=== PATIENT | male | born 1985 | race Caucasian/White ===

== ENCOUNTER 2022-01-22 15:09 | Emergency (ER) | payer OTHER, SELFPAY ==
[2022-01-22 15:20] VITALS: BP 165/100; PULSE 88; RESP 18; TEMP 36.9; O2SAT 99
--- NOTE | 2022-01-22 16:09 | ED.WOUNDLAC ---
HPI - Wound/Laceration <VALERIY Calhoun - Last Filed: 01/22/22 17:07> General Chief Complaint: Wound/Laceration Stated Complaint: Sliced Lt Pinky Finger Time Seen by Provider: 01/22/22 16:07 Source: patient Mode of arrival: Ambulatory History of Present Illness HPI narrative: This is 36-year-old male who was working over at the local grocery store who presents to the emergency department with a left 5th digit laceration. He states he was slicing meat when he sliced the distal end of his 5th digit and it started bleeding. He states he was not able to get the bleeding to stop. Presents to the emergency department for evaluation of his laceration. He states that he is up-to-date on his tetanus, denies any significant pain. 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 He states that he is concerned about read contaminating this with wound by going back to work. Patient tetanus UTD: Yes Related Data Home Medications Medication Instructions Recorded Confirmed dextroamphetamine-amphetamine 20 20 mg PO DAILY 01/17/20 01/17/20 mg tablet (Adderall) Previous Rx's Medication Instructions Recorded mupirocin 2 % topical ointment 1 applic TOP BID #30 gram 01/17/20 Allergies Allergy/AdvReac Type Severity Reaction Status Date / Time No Known Drug Allergies Allergy Verified 01/17/20 11:48 Review of Systems <VALERIY Calhoun - Last Filed: 01/22/22 17:07> Review of Systems Narrative: General: denies fever, chills, malaise, sweats, fatigue Head/Neck: denies headache, neck pain, dizziness Eyes: denies visual changes, eye pain Cardio: denies chest pain, palpitations, edema Respiratory: denies dyspnea, cough MSK: denies joint pain, muscle weakness Skin: denies rash, itching, states laceration to the distal tip of his left 5th digit Neuro: denies numbness, tingling Patient History <VALERIY Calhoun - Last Filed: 01/22/22 17:07> Social History Smoking Status: Current every day smoker Smoking Status: Current every day smoker Exam <VALERIY Calhoun - Last Filed: 01/22/22 17:07> Narrative Exam Narrative: Independently reviewed vitals signs and nursing notes. General: cooperative, comfortable, in no acute distress, well developed and well groomed Head: atraumatic, symmetrical facial expressions Neck: supple, atraumatic, without lymphadenopathy. Eyes: pupils equal round and reactive, EOMI, conjunctiva normal Nose: nares patent, no rhinorrhea Mouth/Throat: uvula midline, moist mucus membranes Cardiovascular: regular rate and rhythm, no peripheral edema, warm extremities MSK: moves all extremities, ambulatory w/steady gait, neurovascularly intact, no weakness Skin: brisk capillary refill, no rash, no erythema, amputation/laceration to the left lateral distal aspect of his 5th digit. Bleeding was controlled with Surgicel. Neuro: normal speech and cognition, A&O x3, normal tone Psych: mental status is grossly normal, congruent mood, normal affect, pleasant and cooperative Initial Vital Signs Initial Vital Signs: Vital Signs Temperature 98.5 F 01/22/22 15:20 Pulse Rate 88 01/22/22 15:20 Respiratory Rate 18 01/22/22 15:20 Blood Pressure 165/100 H 01/22/22 15:20 Pulse Oximetry 99 01/22/22 15:20 <Maura Jimenez DO - Last Filed: 01/24/22 07:27> Initial Vital Signs Initial Vital Signs: Vital Signs Temperature 98.5 F 01/22/22 15:20 Pulse Rate 88 01/22/22 15:20 Respiratory Rate 18 01/22/22 15:20 Blood Pressure 165/100 H 01/22/22 15:20 Pulse Oximetry 99 01/22/22 15:20 Course <VALERIY Calhoun - Last Filed: 01/22/22 17:07> Orders Ordered: Discontinued Medications Lidocaine/Sodium Bicarbonate (Lido 1%/Sod Bicarb 8.4% (10ml) 10 Ml Syringe) 10 ml INJ NOW ONE Stop: 01/22/22 16:11 Vital Signs Vital signs: Vital Signs - 8 hr 01/22/22 15:20 Temperature 98.5 F Pulse Rate 88 Respiratory Rate 18 Blood Pressure 165/100 H Pulse Oximetry 99 <Maura Jimenez DO - Last Filed: 01/24/22 07:27> Orders Ordered: Discontinued Medications Lidocaine/Sodium Bicarbonate (Lido 1%/Sod Bicarb 8.4% (10ml) 10 Ml Syringe) 10 ml INJ NOW ONE Stop: 01/22/22 16:11 Vital Signs Vital signs: Vital Signs - 8 hr 01/22/22 15:20 Temperature 98.5 F Pulse Rate 88 Respiratory Rate 18 Blood Pressure 165/100 H Pulse Oximetry 99 [facility] - Wound/Laceration <VALERIY Calhoun - Last Filed: 01/22/22 17:07> [facility] Narrative Medical decision making narrative: This is a 36-year-old male who presents to the emergency department for a laceration to the lateral distal aspect his left 5th digit. He was slicing meat with a sausage meat trimmer, and sliced the lateral aspect of his 5th digit. There was no tissue left to repair with sutures, pressure did not control bleeding initially, Surgicel applied, this worked well and bleeding stopped. Recommend to continue using a pressure dressing until tomorrow and then mupirocin until it scabs in heels. There is no nail injury. Full range of motion is intact in present, flexion extension isolated each joint and intact. Cap refill less than 2 seconds. No pulsation of bleeding was visible, only a slow venous bleed. 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 He was given strict return precautions to return to the emergency department. Surgicel was applied to wound, wound clotted within 5 minutes, bulky gauze dressing was applied and patient is elevating his finger. He was given dressing supplies to do this at home, recommend to return to the emergency department for bleeding which is not controllable with Surgicel or pressure dressing. Bleeding despite trying these things, or any other concerns. Patient did not have any sensation changes, was neurovascularly intact, bleeding had stopped by the time he was discharged. Patient is appropriate and amenable to discharge home. Vital signs are stable on repeat examination is unremarkable. Patient has been informed of results. Patient has been given strict return to ER precautions for any new or worsening symptoms. Patient understands to follow up closely with outpatient providers as instructed. Patient understands plan and agrees to discharge home. All questions and concerns answered at this time. Discharge Plan Departure Patient Disposition: Home Clinical Impression: Laceration, Work related injury Amputated finger Qualifiers: Encounter type: initial encounter Qualified Code(s): S68.119A - Complete traumatic metacarpophalangeal amputation of unspecified finger, initial encounter Instructions: How to Care for a Laceration After Repair, DI for Minor Laceration Activity Restrictions/Additional Instructions: *You have been diagnosed with a laceration/partial amputation of the distal aspect of your lateral 5th digit. Please keep a pressure dressing on for the next 24 hours with the Surgicel pad intact. Please try and keep it elevated so that it does not want to bleed as it will in a dependent position. Please ice this, take ibuprofen or Tylenol as needed for your pain, this should hopefully start to improve in the next 24-48 hours. Please take the next 5 days off of work your work note is attached. Please follow-up with your primary care provider or return to the emergency department for any worsening of this. Please keep it covered with a Band-Aid when you to return to work and wear gloves. Please use your topical mupirocin ointment to prevent infection. [id number] *What to do: *Please continue to take your regular medications as directed. [ ] New medication prescriptions sent to your pharmacy: [ ] [ ] New medication written as a paper prescription [x ] No new medications given *Please follow up with your primary care provider in 2-3 days, call for an appointment. Let them know you were seen in the Emergency Department and that we asked that you be seen for follow-up. We will electronically transmit a record of today's note if your PCP is in our system *If you do not have a primary care provider please contact [phone] to establish care with one of [facility] primary care providers. *Return to Emergency Department if you should have any new, worsening or concerning symptoms, such as [fever greater than 101F, chills, worsening pain, persistent vomiting or other bothersome symptoms] Prescriptions: No Action dextroamphetamine-amphetamine [Adderall] 20 mg tablet 20 mg PO DAILY 0RF mupirocin 2 % ointment 1 applic TOP BID Qty: 30 0RF Referrals: Miscellaneous,[facility] [Primary Care Provider] - Stand Alone Forms: Work Release Note <Maura Jimenez DO - Last Filed: 01/24/22 07:27> Cosign ED Attending Marisabelature Attestation: I was immediately available in the department for consultation. Documentation has been reviewed.
== END 2022-01-22 16:51 | disposition home or self-care (01) ==
PROVIDERS: Emergency Provider Nurse Practitioner Critical Care Medicine
DX: S68.127A Partial traumatic metacarpophalangeal amputation of left little finger, initial encounter (principal); W26.9XXA Contact with unspecified sharp object(s), initial encounter; Y99.0 Civilian activity done for income or pay
CPT/HCPCS: 99281; 99282